=== PATIENT | male | born 1990 | race Caucasian/White ===

== ENCOUNTER 2017-04-11 17:10 | Observation (INO) | payer BC, OTHER ==
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
[2017-04-11] MEDS ORDERED: ONDANSETRON 4 MG/2 ML VIAL IVP PRN (18:59)
[2017-04-11] MEDS ORDERED: LR 1,000 ML IV SCH (19:00)
[2017-04-11] MEDS ORDERED: ACETAMINOPHEN 325 MG TAB PO SCH (19:00)
[2017-04-11] MEDS ORDERED: KETOROLAC 30 MG/1 ML SDV IVP PRN (19:07)
[2017-04-11 19:17] LABS: PLATELET COUNT 245 10^3/uL (150-400)
[2017-04-11] MEDS ORDERED: CEFAZOLIN 1 GM/DEXTROSE/50 ML BAG IV ONE (19:34)
[2017-04-11] MEDS ORDERED: NS 1,000 ML IV ONE (19:41)
[2017-04-11] MEDS: ACETAMINOPHEN 500 MG TAB PO SCH (20:03)
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
[2017-04-11] MEDS ORDERED: KETOROLAC 30 MG/1 ML SDV ONE (21:47)
[2017-04-11] MEDS: KETOROLAC 30 MG/1 ML SDV IVP SCH (22:00)
[2017-04-12] MEDS: ACETAMINOPHEN 500 MG TAB PO SCH ×2 (03:48→11:17)
[2017-04-12] MEDS: KETOROLAC 30 MG/1 ML SDV IVP SCH ×2 (05:20→11:16)
[2017-04-12 05:27] LABS: PLATELET COUNT 199 10^3/uL (150-400)
[2017-04-12 07:42] VITALS: RESP 16
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
[2017-04-12 11:55] VITALS: BP 119/65; PULSE 66; TEMP 97.4; O2SAT 96
--- NOTE | 2017-04-12 14:22 | TRAUMAPN ---
Assessment/Plan: PAD#1 04/12/2017 Tertiary survey unremarkable Assessment: Doing well. Neurologically intact. Follow up CT essentially unchanged. Note that there is a retained foreign body near left zygoma. Plan: I do not feel that it is necessary to explore and remove fragment at this time. Home today Subjective: no new complaints Objective: Vital Signs Temp Pulse Resp BP Pulse Ox 36.3 C 66 16 119/65 96 04/12/17 11:54 04/12/17 11:54 04/12/17 11:54 04/12/17 11:54 04/12/17 11:54 Laboratory Results 04/12/17 04:48 04/12/17 04:48 04/11/17 04/12/17 04/13/17 05:59 05:59 05:59 Intake Total 2250 Balance 2250 Physical Exam - Physical Exam General Appearance: WD/WN, alert, no apparent distress EENT: other (chewing no longer painful (on left)) Neck: non-tender, full range of motion, supple Respiratory: chest non-tender, lungs clear, normal breath sounds Cardiac/Chest: regular rate, rhythm Abdomen: normal bowel sounds, non-tender, soft, other (no flatus yet) Male Genitalia: deferred Rectal: deferred Back: Normal inspection Skin: normal color, warm/dry, other (left cheek/zygoma lacerations and right parietal scalp lacerations unremarkable. ) Extremities: normal range of motion, non-tender Neuro/Psych: no motor/sensory deficits, alert, normal mood/affect, oriented x 3 Time Spent w/Patient (minutes): 15
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
== END 2017-04-12 16:15 | disposition home or self-care (01) ==
LOC: F3N 20:00
PROVIDERS: ADMIT Surgery; ATTEND Surgery
PROC: 0HQ0XZZ Repair Scalp Skin, External Approach (ICD-10-PCS; principal; 2017-04-11)
PROC: 0HQ1XZZ Repair Face Skin, External Approach (ICD-10-PCS; principal; 2017-04-11)
DX: S02.0XXA Fracture of vault of skull, initial encounter for closed fracture (principal); S01.01XA Laceration without foreign body of scalp, initial encounter; S01.422A Laceration with foreign body of left cheek and temporomandibular area, initial encounter; Y04.0XXA Assault by unarmed brawl or fight, initial encounter; R07.9 Chest pain, unspecified; Y92.019 Unspecified place in single-family (private) house as the place of occurrence of the external cause; F17.200 Nicotine dependence, unspecified, uncomplicated; M41.9 Scoliosis, unspecified
CPT/HCPCS: 12001; 12011; 13132; 70450; 70486; 71046; 92523; 97116; 97161; 97165; G0378; J0690; J1885